=== PATIENT | female | born 1970 | race Caucasian/White ===

== ENCOUNTER 2024-12-21 10:49 | Outpatient (AMB) | payer MEDICARE, SELFPAY ==
--- NOTE | 2024-12-21 10:51 | MHC.OFFVIS ---
Vital Signs 12/21/24 10:52 Height 5 ft 2 in Weight 113 lb BMI 20.7 BP 118/68 Blood Pressure Location Lt brachial Position Sitting Respiration 16 Pulse 69 Pulse Source Pulse Oximeter Pulse Oximetry (%) 98 Oxygen Delivery Method Room Air Intake Visit Reasons: Left Sided Pain and Weakness Preliminary School Psychologist Required: No Allergies No Known Allergies Allergy (Verified 12/21/24 10:56) Medication List - Last Reconciled 12/21/24 by Donna Cherry LPN gabapentin 100 mg PO TID immun glob G(IgG)-pro-IgA 0-50 10 gram/50 mL (20 %) (Hizentra) 14,000 mg subcut QWEEK propranolol 20 mg PO BID HPI HPI Left Sided Pain and Weakness: Details: History of Present Illness The patient is a 54-year-old female presenting with left cervical radiculopathy and migraine management. She reports left-sided neck pain radiating to the anterior chest, axilla, and down the arm, associated with pins and needles and numbness in the left arm. The pain is described as aching, stabbing, and throbbing, with an intensity of 6 to 7 out of 10, exacerbated by movement and using her neck. The patient experiences daily migraines with aura, rated at an intensity of 8 out of 10, and is on gabapentin as needed and propranolol 20 mg twice daily for prophylaxis. Her medical history includes common variable immunodeficiency, POTS, and joint hypermobility. She reports bluish discoloration of her fingers and toes, consistent with Raynaud's phenomenon, and low pulse oximeter readings at night. She has been on Hizentra for her immunodeficiency and reports no association with her neuropathy. Pain Description - Onset: Approximately five years ago, occurring suddenly overnight. - Quality: Aching, stabbing, throbbing. - Location: Left-sided neck, anterior chest, axilla, radiating down the arm. - Radiation: Down the left arm. - Intensity: 6 to 7 out of 10. - Exacerbating factors: Movement, using the neck. - Relieving factors: Rest, not moving. - Interference: Sleep, daily activities. Physical Exam - Extremities: Fingertips cold to touch, bluish discoloration noted at night. Pain Management - Affect: Pain impacts sleep and daily activities. - Analgesia: Gabapentin as needed, propranolol 20 mg twice daily for migraine prophylaxis. - Adverse Effects: Previous allergic reaction to hydrocodone. - Activities of Daily Living: Pain interferes with sleep and daily activities. - Aberrant Drug Related Behaviors: None reported. 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 Inguinal hernia Hyperpigmentation Herpes Fibroids, subserous Femoral hernia of left side Fatigue Exertional dyspnea CVID (common variable immunodeficiency) Circulation problem Atypical chest pain Hypertriglyceridemia Abdominal pain in female Physical Exam Vital Signs: Last Vital Signs Pulse 69 12/21/24 10:52 Resp 16 12/21/24 10:52 BP 118/68 12/21/24 10:52 Pulse Ox 98 12/21/24 10:52 Oxygen Delivery Method Room Air 12/21/24 10:52 BMI result Body Mass Index 20.7 Assessment & Plan Assessment & Plan (1) Cervical spondylosis: Code(s): M47.812 - Spondylosis without myelopathy or radiculopathy, cervical region Category: Medical (2) POTS (postural orthostatic tachycardia syndrome): Code(s): G90.A - Postural orthostatic tachycardia syndrome [POTS] Category: Medical (3) Raynauds phenomenon: Code(s): I73.00 - Raynaud's syndrome without gangrene Category: Medical Plan Plan Patient was informed and verbally consented to the use of an ambient scribe for clinic note documentation during this visit. 1. Left Cervical Radiculopathy - Follow-up: Physical therapy referral for cervical radicular symptoms. 2. Migraine With Aura - Current Treatment: Gabapentin as needed, propranolol 20 mg twice daily for prophylaxis. 3. Raynaud's Phenomenon - Observation: Bluish discoloration of fingers and toes, low pulse oximeter readings at night. - Plan: Proceed with a L stellate ganglion block to manage sympathetic-mediated symptoms. R side 2 weeks later. 4. Postural Orthostatic Tachycardia Syndrome (Pots) - Management: Compression stockings, consideration of autonomic dysfunction management. SGB may help. 5. Joint Hypermobility - Observation: No specific management discussed during the visit. 6. Common Variable Immunodeficiency - Current Treatment: Hizentra for immunodeficiency management. Discussion Notes I discussed with the patient the potential benefits and risks of a stellate ganglion block for managing her sympathetic-mediated symptoms, including possible transient breathing difficulties due to local anesthetic spread. We also talked about the use of compression stockings for POTS and the importance of physical therapy for her cervical radiculopathy. Patient Instructions - Follow up with physical therapy as prescribed. - Wear compression stockings as advised for POTS management. - Await scheduling for the stellate ganglion block procedure. - Monitor for any new or worsening symptoms and report them promptly. Orders: Orders PT Evaluation and Treatment 12/21/24 M47.812 - Spondylosis without myelopathy or radiculopathy, cervical region Coding Level of Care Code New Pt Level 4 (07521) Diagnoses Cervical spondylosis M47.812 POTS (postural orthostatic tachycardia syndrome) G90.A Raynauds phenomenon I73.00
[2024-12-21 10:52] VITALS: BP 118/68; PULSE 69; RESP 16; O2SAT 98; BMI 20.7
--- OUTSIDE RECORDS SUMMARY | 2024-12-21 13:03 | XMS_ITS | Clinical Summary ---
Author Organization [facility] Address [address] [place], [place] [address] Phone Care Team Providers Care Plant Scientist Name Role Phone Мария Schmidt MD Primary Care Provider Vicky Sanon MD Unavailable [phone] Allergies Active Allergy Reactions Criticality Noted Date Comments Bee Venom Protein (Honey Bee) Unknown 10/13/2013 Bee Venom Protein (Honey Bee) High 05/25/2024 Other Flushing,Hives,Itchi n g,Palpitations Low 05/25/2024 Other Reaction(s): Skin lesion patient reports on intake health history form that MOST FOODS, ALL ALCOHOL and DIRECT SUN will lead to hives, flushing, rapid HR, itchy mouth and skin lesions Quinidine Hives 06/15/2020 Shellfish Containing Products 05/25/2024 Medications propranoloL (INDERAL) 20 MG immediate release tablet TAKE 1/2 TABLET BY MOUTH THREE TIMES DAILY FOR ANXIETY 03/25/2024 Active immun glob G,IgG,/pro/IgA 0-50 (HIZENTRA SUBQ) Inject under the skin every other week. Active Social History Tobacco Use Types Packs/Day Years Used Date Smoking Tobacco: Never Smokeless Tobacco: Never Alcohol Use Standard Drinks/Week Comments Not Currently 0 (1 standard drink = 0.6 oz pur e alcohol) Education Answer Date Recorded Are you interested in more education? Not on pooja e 05/25/2024 Are you concerned about learning? Not on file 05/25/2024 No 05/25/2024 No 05/25/2024 Digital Access Answer Date Recorded No 05/25/2024 No 05/25/2024 Reliable internet access at home? Not on file 05/25/2024 Device with a working camera? Not on file Comments Unknown Sex and Gender Information Value Date Recorded Sex Assigned at Not on file Legal Sex Female 10:27 AM EDT Gender Identity Not on file Sexual Orientation Not on file Last Filed Vital Signs Vital Sign Reading Time Taken Comments Blood Pressure 142/82 05/25/2024 1:35 PM EDT Pulse 74 05/22/2021 1:32 PM EST Temperature 37.2 C (98.9 F) 06/30/2021 11:53 AM EDT Respiratory Rate 16 06/30/2021 11:53 AM EDT Oxygen Saturation - - Inhaled Oxygen Concentration - - Weight 48.1 kg (106 lb) 05/25/2024 1:35 PM EDT Height 157.5 cm (5' 2 ) 05/25/2024 1:35 PM EDT Body Mass Index 19.39 05/25/2024 1:35 PM EDT Plan of Treatment Health Maintenance Due Date Last Done Comments Adult Td,Tdap Booster 1972 LIPID PANEL 1972 DEPRESSION SCREENING 1984 HEPATITIS C SCREENING 1990 HIV ONE-TIME SCREENING (18-6 5 YEARS) 1990 PAP SMEAR 1993 COLOGUARD 2017 COLONOSCOPY 2017 COLORECTAL CANCER SCREENING 2017 FIT TEST 2017 FOBT 2017 SIGMOIDOSCOPY 2017 VIRTUAL COLONOSCOPY 2017 MAMMOGRAM 10/30/2018 10/30/2016 PNEUMOCOCCAL VACCINES (50+ y ears) (1 of 1 - PCV) 2022 ZOSTER VACCINES (1 of 2) 2022 INFLUENZA VACCINE (#1) 2024 COVID-19 VACCINE (1 - 2023-2 5 season) 2024 SMOKING STATUS SCREENING (On ce After 26 Yrs) Completed 05/25/2024 HEPATITIS A VACCINES Aged Out No long er eligible based on patient's age to complete this topic HIB VACCINES Aged Out No longer eligi ble based on patient's age to complete this topic MENINGOCOCCAL VACCINES (ACWY) Aged Out No longer eligible based on patient's age to complete this topic MENINGOCOCCAL VACCINES (B) Aged Out N o longer eligible based on patient's age to complete this topic Medical Devices Not on file Insurance [employer] O POS EPO Care Teams Plant Scientist Relationship Specialty Start Date End Date Мария Schmidt MD [address] [place] [address] PCP - General Family Medicine 04/22/24 Vicky Sanon MD [address] [place] [address] [email or web address] 04/22/24 Additional Source Comments The information contained in this document represents components of the legal health record. It is not the complete legal health record.[facility]
--- OUTSIDE RECORDS SUMMARY | 2024-12-21 13:03 | XMS_ITS | Clinical Summary ---
Author Organization [facility] Address [address] [place] [address] Care Team Providers Care Still Worker Helper Name Role Phone Unavailable Primary Care Provider Unavailabl e Social History Tobacco Use Types Packs/Day Years Used Date Smoking Tobacco: Never Assessed Comments Unknown Sex and Gender Information Value Date Recorded Sex Assigned at Not on file Legal Sex Female 18:09 EST Gender Identity Not on file Sexual Orientation Not on file Plan of Treatment Health Maintenance Due Date Last Done Comments Hepatitis C Screen 1972 Hepatitis B Vaccine (1 of 3 - 19+ 3-dose series) 07/24 COVID-19 Vaccine ( season) 2023
--- OUTSIDE RECORDS SUMMARY | 2024-12-21 13:03 | XMS_ITS | Encounter Summary ---
Author Organization [facility] Address [address] [place] [address] Care Team Providers Care Branch Specialist Name Role Phone Unavailable Primary Care Provider Unavailabl e Encounter Details Date Type Department Care Team (Late st Contact Info) Description 06/10/[address] [facility] Pathology & Laboratory Medicine - [facility] [address] [place] [address] Мария Schmidt [address] [place] [address] Encounter for other general examination Social History Tobacco Use Types Packs/Day Years Used Date Smoking Tobacco: Never Assessed Comments Unknown Sex and Gender Information Value Date Recorded Sex Assigned at Not on file Legal Sex Female 18:09 EST Gender Identity Not on file Sexual Orientation Not on file documented as of this encounter Plan of Treatment Not on file documented as of this encounter Procedures Procedure Name Priority Date/Time Associated Diagnosis Comments PAP TEST Today 06/06/2023 16:55 EDT HPV DNA DETECTION WITH GENOTYPING, PCR Today 06/06/2023 16:55 EDT documented in this encounter Results * HUMAN PAPILLOMAVIRUS (HPV) DETECTION-HIGH RISK TYPES (06/06/2023 16:55 EDT) HPV other High Risk types, PCR Negative Negative 06/14/2023 15:44 EDT [facility] Comment:No E6 or E7 mRNA is detected from HPV types 16,18,31,33,35,39,45,51,52,56,58,59,66, and 68 by project planner mediated amplification. Pap Test CERVIX UTERI STRUCTURE / Unknown 06/06/2023 16:55 EDT 06/13/2023 14:56 EDT Мария Schmidt PATHOLOGY ORDERABLES Final Resul t [facility] [address] [place], [place] [id number] * PAP TEST (06/06/2023 16:55 EDT) Specimens A. Cervix and/or Endocervix , ThinPrep Imaging System with Manual Evaluation 06/14/2023 15:44 EDT [facility] Specimen Adequacy Satisfactory for Evaluation - transformation zone component present 06/14/2023 15:44 EDT [facility] General Categorization Negative for intraepithelial lesion or malignancy 06/14/2023 15:44 EDT [facility] Descriptive Diagnosis Shift in teagan present suggestive of bacterial vaginosis. 06/14/2023 15:44 EDT [facility] Attestation . 06/14/2023 15:44 T [facility] at 1544 EDT Clinical History SEE BELOW 06/14/19 15:44 EDT [facility] HPV The result for the Human Papillomavirus (HPV) Detection-High Risk Types is Negative. No E6 or E7 mRNA is detected from HPV types 16,18,31,33,35,39 ,45,51,52,56,58,5 9,66, and 68 by project planner mediated amplification.Sheridan ting was performed on specimen [id number] and was resulted on 06/14/2023 1544 EDT by OTILIO, LAB INSTRUMENT RESULTS IN 06/14/2023 15:44 EDT [facility] Performing Lab [facility] 06/14/2023 15:44 EDT [facility] Scanned Images 06/14/2023 15:44 T [facility] Pap Test CERVIX UTERI STRUCTURE / Unknown 06/06/2023 16:55 EDT 06/11/2023 16:04 EDT Мария Schmidt PATHOLOGY ORDERABLES Final Resul t [facility] [address] [place] [phone] documented in this encounter Visit Diagnoses Diagnosis Encounter for other general examination documented in this encounter
--- OUTSIDE RECORDS SUMMARY | 2024-12-21 13:03 | XMS_ITS | Encounter Summary ---
Author Organization [facility] Address [address] [place] [address] Care Team Providers Care Journeyman Sheet Metal Worker Name Role Phone Unavailable Primary Care Provider Unavailabl e Encounter Details Date Type Department Care Team (Late st Contact Info) Description 02/05/2023 Lab Requisition [facility] Pathology & Laboratory Medicine - [facility] [address] [place] [address] Outr Resulting Lab, Provider Social History Tobacco Use Types Packs/Day Years [...] Procedure Name Priority Date/Time Associated Diagnosis Comments IGE Routine 02/05/2023 14:28 EST documented in this encounter Results * IGE (02/05/2023 14:28 EST) IgE 7 <158 IU/mL 02/08/2023 8:57 EST [facility] Blood VENOUS BLOOD / Unknown 02/05/2023 14:28 EST 02/06/2023 21:02 EST us Provider Outr Resulting Lab CHEMISTRY & BLOOD GA S ORDERABLES Final Result [facility] [address] [place] [address] documented in this encounter Visit Diagnoses Not on filedocumented in this encounter
--- OUTSIDE RECORDS SUMMARY | 2024-12-21 13:03 | XMS_ITS | Encounter Summary ---
Author Organization [facility] Address [address] [place] [address] Care Team Providers Care Electric Tripper Machine Operator Name Role Phone Unavailable Primary Care Provider Unavailabl e Encounter Details Date Type Department Care Team (Late st Contact Info) Description 06/15/2024 Lab Requisition [facility] Pathology & Laboratory Medicine - [facility] [address] [place] [address] Outr Resulting Lab, Provider Social History Tobacco [...] Priority Date/Time Associated Diagnosis Comments IGE Routine 06/15/2024 11:32 EDT documented in this encounter Results * IGE (06/15/2024 11:32 EDT) IgE 6 <158 IU/mL 06/17/2024 8:21 EDT [facility] Blood VENOUS BLOOD / Unknown 06/15/2024 11:32 EDT 06/15/2024 22:21 EDT us Provider Outr Resulting Lab CHEMISTRY & BLOOD GA S ORDERABLES Final Result [facility] [address] [place], [place] [phone] documented in this encounter Visit Diagnoses Not on filedocumented in this encounter
--- OUTSIDE RECORDS SUMMARY | 2024-12-21 13:03 | XMS_ITS | Encounter Summary ---
Author Organization [facility] Address [address] [place] [address] Care Team Providers Care Restaurant Hostess Name Role Phone Unavailable Primary Care Provider Unavailabl e Encounter Details Date Type Department Care Team (Late st Contact Info) Description 08/13/2024 Lab Requisition [facility] Pathology & Laboratory Medicine - [facility] [address] [place] [address] Outr Resulting Lab, Provider Social History Tobacco [...] Procedure Name Priority Date/Time Associated Diagnosis Comments ANCA, IFA Routine 08/13/2024 11:26 EDT documented in this encounter Results * ANCA, IFA (08/13/2024 11:26 EDT) Lab ANCA Interpretation Negative Negative 08/14/2024 12:12 EDT [facility] Comment: ANNAMARIE Positive, suggest follow-up ANNAMARIE testing if clinically indicated. Cannot rule out Atypical P-ANCA (A-ANCA). No titer performed, ANCA Screen is negative. For patients being investigated for possible Anti-GBM disease, Idiopathic Interstitial Pneumonia, and Connective Tissue Disease with concomitant Kidney Disease with Nephritic Sediment or Lupus Nephritis, both MPO and PR3 antibodies are recommended to be assessed even in the presence of a negative ANCA, IFA result. Results were obtained with the [employer] NOVA Lite ANCA kit by indirect immunofluorescence. Blood VENOUS BLOOD / Unknown 08/13/2024 11:26 EDT 08/13/2024 21:23 EDT us Provider Outr Resulting Lab IMMUNOLOGY AND SEROL OGY ORDERABLES Final Result [facility] [address] [place] [address] documented in this encounter Visit Diagnoses Not on filedocumented in this encounter
--- OUTSIDE RECORDS SUMMARY | 2024-12-21 13:03 | XMS_ITS | Clinical Summary ---
Author Organization [facility] Address [facility] [place] [address] Care Team Providers Care Rebeamer Name Role Phone Мария Schmidt MD Primary Care Provider [phone] Allergies Active Allergy Reactions Criticality Noted Date Comments Unclassified Drug High 05/16/2022 Honey bees Quinidine-Quinine Analogues (Cinchona Alkaloids) Hives 06/16/2020 Shellfish Containing Products Hives 2020 Medications lidocaine-pril ocaine (EMLA) Cream APPLY EXTERNALLY TO THE AFFECTED AREA EVERY 2 WEEKS PRIOR TO HIZENTRA INJECTIONS 2 Active propranoloL (Inderal) 10 mg Tablet TAKE 1 TO 2 TABLETS BY MOUTH TWICE DAILY NEEDED 2 Active immun glob G,IgG,-pro-IgA 0-50 (Hizentra) 10 gram/50 mL (20 %) Solution Inject 200 mg/kg/dose subcutaneously once a week. Take with the 4mg biweekly Active Immune Globulin, Human,, IGG, (Hizentra) 4 gram/20 mL (20 %) Solution Inject 200 mg/kg/dose subcutaneously once a week. Takes with 10g biweekly Active melatonin 3 mg Tablet Take 3 mg by mouth. Active loratadine (CLARITIN REDITABS) 10 mg Tablet, Rapid Dissolve Take 10 mg by mouth daily. Active famotidine (PEPCID) 10 mg Tablet Take 10 mg by mouth. Active ascorbic acid, Vitamin C, (Vitamin C) 500 mg Tablet Take 500 mg by mouth daily. Active cholecalcifero l (Vitamin D3) 1,000 unit Tablet Take 4,000 Units by mouth daily. Active EPINEPHrine 0.3 mg/0.3 mL Auto-Injector See Admin Instructions. 7 Active ketoconazole (Nizoral) 2 % Cream apply to affected area for 14 days 2 Active ubiquinone, Coenzyme Q10, (Coenzyme Q10) 50 mg Capsule Take 100 mg by mouth daily. Active acetaminophen (Tylenol) 500 mg capsule Take by mouth 2 times daily as needed. Active valACYclovir (Valtrex) 500 mg tablet Take 1 tablet by mouth 2 times daily. FOR 10 DAYS 14 tablet 2 3 Active Active Problems Problem Noted Date Diagnosed Date Median rhomboid glossitis 06/12/2022 Bilateral recurrent inguinal hernia without obstruction or gangrene 06/12/2022 CVID (common variable immunodeficiency) 06/13/19 23 Immunodeficiency 06/12/2022 Low urinary cortisol 06/12/2022 Hyperpigmentation 06/12/2022 Encounters Date Type Department Care Team Description 11/24/2024 Episode Changes [place] [address] Derek Thomas MD from Last 3 Months Immunizations Immunization Administration Dates Next Due Pneumococcal 23-Valent Polysaccharide (Pneumovax 23) 12/24/2016 Family History Medical History Relation Comments No Known Problems Father Autism Spectrum Disorder Half-Brother high fu nctioning No Known Problems Half-Sister Autoimmune Disorder Mother lots of AI i ssues on mom's side; uncle passed from lupus complications; no contact with mom so unknown specific hx Lung Cancer Paternal Uncle heavy smoker No Known Problems Sister Relation Status Comments Father Alive Half-Brother Alive Half-Sister Alive Mother Paternal Uncle Sister Alive Social History Tobacco Use Types Packs/Day Years Used Date Smoking Tobacco: Never Smokeless Tobacco: Never Comments No Sex and Gender Information Value Date Recorded Sex Assigned at Female 05/22/2022 7:43 AM EST Legal Sex Female 1:19 PM EDT Gender Identity Female 05/22/2022 7:43 AM EST Sexual Orientation Straight 05/22/2022 7: 43 AM EST Last Filed Vital Signs Vital Sign Reading Time Taken Comments Blood Pressure 118/80 12/13/2023 10:59 AM EDT 112/72 on right arm Pulse 69 12/13/2023 10:59 AM EDT Temperature 37 C (98.6 F) 05/22/2022 11:03 AM EST Respiratory Rate - - Oxygen Saturation 99% 12/13/2023 10: 59 AM EDT Inhaled Oxygen Concentration - - Weight 47.5 kg (104 lb 12.8 oz) 12/13/2023 10:59 AM EDT Height 159 cm (5' 2.6 ) 12/13/2023 10:5 9 AM EDT Body Mass Index 18.8 12/13/2023 10:59 AM EDT Plan of Treatment Health Maintenance Due Date Last Done Comments CT Colonography 1972 Colonoscopy 1972 Colorectal Cancer Screening 1972 FIT DNA 1972 FIT 1972 Sigmoidoscopy (10 year) with FIT yearly 1972 Sigmoidoscopy 1972 Hepatitis C Screening 1990 Hepatitis B vaccine (0-59 yr s) and Risk (1) 07/25/1991 Tetanus/Diphtheria/Pertussis Vaccines (1 - Tdap) 07/25/1991 Zoster vaccine (1 of 2) 07/25/1991 Breast Cancer Share Decision Needed 2012 Pneumoccocal Vaccine: 50+ (2 of 2 - PCV) 12/24/2017 12/24/2016 HPV test 11/12/2022 11/12/2017 PAP Smear 11/12/2022 11/12/2017 Covid-19 Vaccine (1 - season) 2024 Influenza (Flu) vaccine (1 o f 1 - Influenza standard series) 11/16/2024 Breast Cancer screening 02/03/2026 02/04/2024, 06/14 HIV screen Completed 07/22/2016 Procedures Procedure Name Priority Date/Time Associated Diagnosis Comments MAMMO SCREENING CAD AND CARLOS BILATERAL Routine 02/04/2024 CYTOPATHOLOGY GYNECOLOGICAL Routine 11/12/2017 HIV SCREEN, 4TH GENERATION PERFORMABLE Routine 07/22/2016 from Last 3 Months or Most Recently Relevant to Health Maintenance Results * Mammo Screening Cad and Carlos Bilateral (02/04/2024) Anatomical Region Laterality Modality Breast Bilateral Mammography 02/04/2024 Narrative 02/04/2024 3:43 PM EST Ord Phys: Мария Schmidt NO KNOWN FAMILY HISTORY OF CANCER. BENIGN EXCISIONAL BIOPSY OF THE LEFT BREAST, 2008. TOOK HORMONAL CONTRACEPTIVES FOR 20 YEARS BEGINNING AT AGE 17. PATIENT'S SMOKING HISTORY IS UNKNOWN. PATIENT'S BMI IS 19.2. Last mammogram was performed 1 year and 8 months ago. Reason for exam: screening, asymptomatic screening mammo;Z12.31 Encounter for screening mammogram for malignant ne Patient reports left breast pain x 2 years but is getting worse. Area of pain marked on image. MA Mammogram Digital Screening: February 04, 2024 - Exam #: [id number] Bilateral CC and MLO view(s) were taken. Technologist: GISELA Rosas RT (R) (M) (BD) (ARRT) Prior study comparison: January 10, 2023, MA mammogram digital diagnostic left performed at [facility]. June 14, 2022, bilateral MA mammogram digital screening performed at [facility]. There are scattered fibroglandular densities. Bilateral mammography with CAD and digital breast tomosynthesis was performed. No dominant mass, architectural distortion or suspicious microcalcifications are seen. No focal lesion at the site of the pain upper outer aspect of the left breast. Ultrasound is recommended for further evaluation of this region. ASSESSMENT: Incomplete: need additional imaging evaluation - Left Ultrasound of the left breast. Electronically Signed By: Yohan Hernández MD *#* *#* Read by: Yohan Hernández M.D. Procedure Note Yohan Hernández MD - 02/04/2024 Ord Phys: Мраия Schmidt NO KNOWN FAMILY HISTORY OF CANCER. BENIGN EXCISIONAL BIOPSY OF THE LEFT BREAST, 2008. TOOK HORMONAL CONTRACEPTIVES FOR 20 YEARS BEGINNING AT AGE 17. PATIENT'S SMOKING HISTORY IS UNKNOWN. PATIENT'S BMI IS 19.2. Last mammogram was performed 1 year and 8 months ago. Reason for exam: screening, asymptomatic screening mammo;Z12.31 Encounter for screening mammogram for malignant ne Patient reports left breast pain x 2 years but is getting worse. Area of pain marked on image. MA Mammogram Digital Screening: February 04, 2024 - Exam #: [id number] Bilateral CC and MLO view(s) were taken. Technologist: GISELA Rosas RT (R) (M) (BD) (ARRT) Prior study comparison: January 10, 2023, MA mammogram digital diagnostic left performed at [facility]. June 14, 2022, bilateral MA mammogram digital screening performed at [facility]. There are scattered fibroglandular densities. Bilateral mammography with CAD and digital breast tomosynthesis was performed. No dominant mass, architectural distortion or suspicious microcalcifications are seen. No focal lesion at the site of the pain upper outer aspect of the left breast. Ultrasound is recommended for further evaluation of this region. ASSESSMENT: Incomplete: need additional imaging evaluation - Left Ultrasound of the left breast. Electronically Signed By: Yohan Hernández MD *#* *#* Read by: Yohan Hernández M.D. Мария Schmidt MD IMG MAMMO ORDERABLES Final Re sult * Cytopathology Gynecological (11/12/2017) External PAP Smear NEGATIVE Comment:PLEASE SEE CARE EVER YWHERE HPV Interpretation NEGATIVE AP Specimen 11/12/2017 Historical Provider PATHOLOGY/CYTOLOGY ORDERA BLES Final Result * HIV Screen, 4th Generation ([facility]/CGP/APD/NLH) (07/22/2016) HIV Ab/Ag Screen NON-REACTI VE Comment:PLEASE SEE CARE EVER YWHERE Blood 07/22/2016 Historical Provider CHEMISTRY ORDERABLES Bella l Result from Last 3 Months or Most Recently Relevant to Health Maintenance Insurance [employer] Care Teams Rebeamer Relationship Specialty Start Date End Date Мария Schmidt MD [address] [address] PCP - General Family Medicine 03/04/24
== END 2024-12-21 11:45 | disposition home or self-care (01) ==
LOC: HO.PMC 10:50
PROVIDERS: Visit Provider Internal Medicine
DX: M47.812 Spondylosis without myelopathy or radiculopathy, cervical region (principal); G90.A Postural orthostatic tachycardia syndrome [POTS]; I73.00 Raynaud's syndrome without gangrene
CPT/HCPCS: 99204

== ENCOUNTER → 2024-12-21 10:49 | Outpatient (BNVA) | payer MEDICARE, SELFPAY | PROVIDERS: Visit Provider Internal Medicine | DX: M47.812 Spondylosis without myelopathy or radiculopathy, cervical region (principal); G90.A Postural orthostatic tachycardia syndrome [POTS]; I73.00 Raynaud's syndrome without gangrene | CPT/HCPCS: 99202 ==

== ENCOUNTER 2025-02-18 06:32 | Outpatient (REF) | payer MEDICARE, SELFPAY ==
--- OUTSIDE RECORDS SUMMARY | 2025-02-18 06:35 | XMS_ITS | Encounter Summary ---
Author Organization [facility] Address [address] [place] [address] Care Team Providers Care Senior Supplier Quality Engineer Name Role Phone Unavailable Primary Care Provider Unavailabl e Encounter Details Date Type Department Care Team (Late st Contact Info) Description 08/13/2024 Lab Requisition [facility] Pathology & Laboratory Medicine - [facility] [address] [place] [address] Outr Resulting Lab, Provider Social History Tobacco [...] ANCA Interpretation Negative Negative 08/14/2024 12:12 EDT [facility] Comment: ANNAMARIE Positive, suggest follow-up [...] IFA result. Results were obtained with the [employer] NOVA Lite ANCA kit by indirect immunofluorescence. Blood VENOUS BLOOD / Unknown 08/13/2024 11:26 EDT 08/13/2024 21:23 EDT us Provider Outr Resulting Lab IMMUNOLOGY AND SEROL OGY ORDERABLES Final Result [facility] [address] [place] [address] documented in this encounter Visit Diagnoses Not on filedocumented in this encounter
--- OUTSIDE RECORDS SUMMARY | 2025-02-18 06:35 | XMS_ITS | Encounter Summary ---
Author Organization [facility] Address [address] [place] [address] Care Team Providers Care Taxi Cab Driver Name Role Phone Unavailable Primary Care Provider Unavailabl e Encounter Details Date Type Department Care Team (Late st Contact Info) Description 06/15/2024 Lab Requisition [facility] Pathology & Laboratory Medicine - [facility] [address] [place] [address] Outr Resulting Lab, Provider Social History Tobacco [...] IgE 6 <158 IU/mL 06/17/2024 8:21 EDT [facility] Blood VENOUS BLOOD / Unknown 06/15/2024 11:32 EDT 06/15/2024 22:21 EDT us Provider Outr Resulting Lab CHEMISTRY & BLOOD GA S ORDERABLES Final Result [facility] [address] [place], [place] [id number] documented in this encounter Visit Diagnoses Not on filedocumented in this encounter
--- OUTSIDE RECORDS SUMMARY | 2025-02-18 06:35 | XMS_ITS | Encounter Summary ---
Author Organization [facility] Address [address] [place] [address] Care Team Providers Care Truck Driver Rubbish Collector Name Role Phone Unavailable Primary Care Provider Unavailabl e Encounter Details Date Type Department Care Team (Late st Contact Info) Description 02/05/2023 Lab Requisition [facility] Pathology & Laboratory Medicine - [facility] [address] [place] [address] Outr Resulting Lab, Provider Social History Tobacco [...] IgE 7 <158 IU/mL 02/08/2023 8:57 EST [facility] Blood VENOUS BLOOD / Unknown 02/05/2023 14:28 EST 02/06/2023 21:02 EST us Provider Outr Resulting Lab CHEMISTRY & BLOOD GA S ORDERABLES Final Result [facility] [address] [place] [address] documented in this encounter Visit Diagnoses Not on filedocumented in this encounter
--- OUTSIDE RECORDS SUMMARY | 2025-02-18 06:35 | XMS_ITS | Clinical Summary ---
Author Organization [facility] Address [address] [place] [address] Care Team Providers Care Network Planner Name Role Phone Unavailable Primary Care Provider [...] 3-dose series) 07/24 COVID-19 Vaccine ( season) 2024
--- OUTSIDE RECORDS SUMMARY | 2025-02-18 06:35 | XMS_ITS | Clinical Summary ---
Author Organization [facility] Address [facility] [place] [address] Care Team Providers Care Dispatcher Chief Coal Slurry Name Role Phone Мария Schmidt MD Primary Care Provider [phone] Allergies Active Allergy Reactions Criticality Noted Date [...] Encounters Date Type Department Care Team Description 02/04/2025 Interpretation Only [address] [address] Hosea Boyd MD Abdominal distension (gaseous); Left lower quadrant pain 01/29/2025 Interpretation Only [address] [address] Мария Schmidt MD Cervicalgia 12/29/2024 Transcribe Orders eD Incoming Referrals [phone] Мария Schmidt MD Idiopathic sleep related nonobstructive alveolar hypoventilation 11/24/2024 Episode [place] [id number] Derek Thomas MD from Last 3 Months [...] Done Comments CT Colonography 1972 Colonoscopy 1972 FIT 1972 Sigmoidoscopy (10 year) with FIT yearly 1972 Sigmoidoscopy 1972 Hepatitis C Screening 1990 Hepatitis B vaccine (0-59 yr s) and Risk (1) 07/25/1991 Tetanus/Diphtheria/Pertussis Vaccines (1 - Tdap) 07/25/1991 Zoster vaccine (1 of 2) 07/25/1991 Breast Cancer Share Decision Needed 2012 Pneumoccocal Vaccine: 50+ (2 of 2 - PCV) 12/24/2017 12/24/2016 RSV Vaccine (1 - Risk 50-74 years 1-dose series) 2022 HPV test 11/12/2022 11/12/2017 PAP Smear 11/12/2022 11/12/2017 Covid-19 Vaccine (1 - season) 2024 Influenza (Flu) vaccine (1 o f 1 - Influenza standard series) 11/16/2024 Breast Cancer screening 02/03/2026 02/04/2024, 06/14 Colorectal Cancer Screening 01/22/2027 FIT DNA 01/22/2027 01/23/2024 HIV screen Completed 07/22/2016 Procedures Procedure Name Priority Date/Time Associated Diagnosis Comments US PELVIS COMPLETE Routine 02/04/2025 2: 30 PM EST Abdominal distension (gaseous) Left lower quadrant pain MRI CERVICAL SPINE WO CONTRAST Routine 01/29/2025 1:27 PM EST Cervicalgia MAMMO SCREENING CAD AND CARLOS BILATERAL Routine 02/04/2024 CYTOPATHOLOGY GYNECOLOGICAL Routine 11/12/2017 HIV SCREEN, 4TH GENERATION PERFORMABLE Routine 07/22/2016 from Last 3 Months or Most Recently Relevant to Health Maintenance Results * US Pelvis Complete (02/04/2025 2:30 PM EST) PT CLASS O RAD ADMITDTTM [id number] RAD PT RAD MD INFO [id number]^BOYD ^CHRISTOPHER RAD EXAM DESC UPEL^US Pelvis Non-OB Complete^RIS RAD WORKSTATION ID BVT RAD Anatomical Region Laterality Modality Pelvis Ultrasound 02/04/2025 2:30 PM EST Impressions 02/04/2025 3:36 PM EST 1. Fibroid uterus. 2. Small left inguinal hernia. Thank you for letting us participate in the care of this patient. If you are a health care provider and have any questions regarding this report, please contact the number above. For patients who have questions, please contact the health acute care registered nurse that requested your imaging first. Yohan Hernández, Staff Physician Electronically Signed Final Report 02/04/2025 03:36 pm Narrative 02/04/2025 3:36 PM EST Gynecological Report (Signed Final 02/04/2025 03:36 pm) PATIENT INFO: ID #: [id number] : [birth year] (54 yrs)(F) Name: DEVORAH WAYNE Visit Date: 02/04/2025 02:30 pm IDALMIS PERFORMED BY: Attending: Yohan Hernández MD Performed By: Lamar Cruz Referred By: HOSEA BOYD Location: [facility] SERVICE(S) PROVIDED: UPEL - Pelvis Complete - [id number] INDICATIONS: increased abdominal bloating, LLQ pain and nausea;R14.0 Abdominal distension (gaseous) -------- HISTORY: -------- Age: 54 ------- UTERUS: ------- Uterus: Visualized Position: Anteverted Size (cm) L: 8.9 H: 7.7 Description: Heterogeneous myometrium, 2 discrete fibroids measured. ------- MYOMAS: ------- Site L(cm) W(cm) D(cm) Location 3.0 2.0 2.6 Mid 2.6 2.3 2.9 Mid anterior Blood Flow RI PI Comments ENDOMETRIUM: Endometrium: Normal appearance Thickness(mm): 11.0 RIGHT OVARY: Status: Visualized Size (cm) L: 3.4 W: 2.9 H: 1.7 Vol (ml): 8.8 Morphology: Normal appearance LEFT OVARY: Status: Not Visualized --------- COMMENTS: --------- Left inguinal hernia measuring 6 mm. Procedure Note Yohan Hernández MD - 02/04/2025 Gynecological Report (Signed Final 02/04/2025 03:36 pm) PATIENT INFO: ID #: [id number] : [birth year] (54 yrs)(F) Name: DEVORAH WAYNE Visit Date: 02/04/2025 02:30 pm IDALMIS PERFORMED BY: Attending: Yohan Hernández MD Performed By: Lamar Cruz Referred By: HOSEA BOYD Location: [facility] SERVICE(S) PROVIDED: UPEL - Pelvis Complete - [id number] INDICATIONS: increased abdominal bloating, LLQ pain and nausea;R14.0 Abdominal distension (gaseous) -------- HISTORY: -------- Age: 54 ------- UTERUS: ------- Uterus: Visualized Position: Anteverted Size (cm) L: 8.9 H: 7.7 Description: Heterogeneous myometrium, 2 discrete fibroids measured. ------- MYOMAS: ------- Site L(cm) W(cm) D(cm) Location 3.0 2.0 2.6 Mid 2.6 2.3 2.9 Mid anterior Blood Flow RI PI Comments ENDOMETRIUM: Endometrium: Normal appearance Thickness(mm): 11.0 RIGHT OVARY: Status: Visualized Size (cm) L: 3.4 W: 2.9 H: 1.7 Vol (ml): 8.8 Morphology: Normal appearance LEFT OVARY: Status: Not Visualized --------- COMMENTS: --------- Left inguinal hernia measuring 6 mm. IMPRESSION 1. Fibroid uterus. 2. Small left inguinal hernia. Electronically signed by: Yohan Hernández, [facility] ([phone]), at 02/04/2025 3:30 PM Thank you for letting us participate in the care of this patient. If you are a health care provider and have any questions regarding this report, please contact the number above. For patients who have questions, please contact the health acute care registered nurse that requested your imaging first. Yohan Hernández, Staff Physician Electronically Signed Final Report 02/04/2025 03:36 pm us Hosea Boyd MD [facility] PELVIC ORDERABLES Final Result * MRI Cervical Spine wo Contrast (Standard) (01/29/2025 1:27 PM EST) PT CLASS O RAD ADMITDTTM [id number] [facility] PT MRN --15 [facility] INFO [id number]^Arthurm an^Мария [facility] EXAM DESC [id number]^MRI Spine Cervical w/o Contrast^RIS [facility] WORKSTATION ID [id number] [facility] Anatomical Region Laterality Modality C-spine Magnetic Resonan ce 01/29/2025 1:27 PM EST Impressions 02/01/2025 1:05 PM EST Degenerative disc changes and facet arthropathy of the cervical spine most marked at C4-5 and C5-6. There is moderate right neural foramen narrowing at C5-6. Thank you for letting us participate in the care of this patient. If you are a health care provider and have any questions regarding this report, please contact the number below. For patients who have questions please contact the health acute care registered nurse that requested your imaging first. Electronically signed by: Andrey Tucker MD, [facility] ([phone]), at 02/01/2025 1:05 PM Narrative 02/01/2025 1:05 PM EST EXAMINATION: MRI Spine Cervical w/o Contrast CLINICAL HISTORY: worsening chronic left sided neck pain with radiation down the left arm;M54.2 Cervicalgia TECHNIQUE: MRI of the cervical spine performed without intravenous contrast administration. COMPARISON: None FINDINGS: There is mild straightening of cervical lordosis and slight retrolisthesis of C5 with respect to C6. There is mild loss of disc space height at C4-5 and C5-6. Marrow signal is normal. The cervical spinal cord is of normal contour and signal characteristics. At C2-3 there is no disc herniation or evidence of nerve root impingement. At C3-4 there is mild right and moderate left hypertrophic facet arthropathy producing little narrowing of the spinal canal or neural foramina. At C4-5 there is posterior ridging by disc and uncovertebral osteophyte. The disc produces partial effacement of the ventral subarachnoid space and slightly flattens the ventral aspect of the spinal cord the dorsal subarachnoid spaces are widely patent. There is mild bilateral facet arthropathy and mild left neural foramen narrowing. At C5-6 there is posterior ridging by a disc and uncovertebral osteophyte greater on the right. This combines with mild bilateral facet arthropathy to produce moderate right and mild left neural foramen narrowing. There is partial effacement of ventral subarachnoid space but no compression of the spinal cord. At C 67 there is minor disc osteophyte and bilateral neural foramen narrowing. At C7-T1 there is no disc herniation or evidence of nerve root impingement. Procedure Note Andrey Tucker MD - 02/01/2025 EXAMINATION: MRI Spine Cervical w/o Contrast CLINICAL HISTORY: worsening chronic left sided neck pain with radiationdown the left arm;M54.2 Cervicalgia TECHNIQUE: MRI of the cervical spine performed without intravenous contrastadministration. COMPARISON: None FINDINGS: There is mild straightening of cervical lordosis and slight retrolisthesisof C5 with respect to C6. There is mild loss of disc space height at C4-5 andC5-6. Marrow signal is normal. The cervical spinal cord is of normal contourand signal characteristics. At C2-3 there is no disc herniation or evidence of nerve rootimpingement. At C3-4 there is mild right and moderate left hypertrophic facetarthropathy producing little narrowing of the spinal canal or neural foramina. At C4-5 there is posterior ridging by disc and uncovertebral osteophyte.The disc produces partial effacement of the ventral subarachnoid space andslightly flattens the ventral aspect of the spinal cord the dorsal subarachnoidspaces are widely patent. There is mild bilateral facet arthropathy and mildleft neural foramen narrowing. At C5-6 there is posterior ridging by a disc and uncovertebralosteophyte greater on the right. This combines with mild bilateral facet arthropathyto produce moderate right and mild left neural foramen narrowing. There ispartial effacement of ventral subarachnoid space but no compression of the spinalcord. At C 67 there is minor disc osteophyte and bilateral neural foramennarrowing. At C7-T1 there is no disc herniation or evidence of nerve rootimpingement. IMPRESSION Degenerative disc changes and facet arthropathy of the cervical spinemost marked at C4-5 and C5-6. There is moderate right neural foramen narrowingat C5-6. Thank you for letting us participate in the care of this patient. If youare a health care provider and have any questions regarding this report,please contact the number below. For patients who have questions please contactthe health acute care registered nurse that requested your imaging first. Electronically signed by: Andrey Tucker MD, [facility]([phone]), at 02/01/2025 1:05 PM us Мария Schmidt MD IM MRI ORDERABLES Final Resu lt * Mammo Screening Cad and Carlos Bilateral [...] Screening: February 04, 2024 - Exam #: [id number] Bilateral CC and MLO view(s) were taken. Technologist: GISELA Rosas RT (R) (M) (BD) (ARRT) Prior study comparison: January 10, 2023, MA mammogram digital diagnostic left performed at [facility]. June 14, 2022, bilateral MA mammogram digital screening performed at [facility]. There are scattered fibroglandular densities. Bilateral [...] Yohan Hernández MD - 02/04/2024 Ord Phys: Мария Schmidt NO KNOWN FAMILY [...] Screening: February 04, 2024 - Exam #: [id number] Bilateral CC and MLO view(s) were taken. Technologist: GISELA Rosas RT (R) (M) (BD) (ARRT) Prior study comparison: January 10, 2023, MA mammogram digital diagnostic left performed at [facility]. June 14, 2022, bilateral MA mammogram digital screening performed at [facility]. There are scattered fibroglandular densities. Bilateral [...] Final Result * HIV Screen, 4th Generation ([facility]/CGP/APD/NL) (07/22/2016) HIV Ab/Ag Screen NON-REACTI VE Comment:PLEASE SEE CARE EVER YWHERE Blood 07/22/2016 Historical Provider CHEMISTRY ORDERABLES Bella l Result from Last 3 Months or Most Recently Relevant to Health Maintenance Insurance [employer] Care Teams Dispatcher Chief Coal Slurry Relationship Specialty Start Date End Date Мария Schmidt MD [address] [facility] [address] [place] [address] PCP - General Family Medicine 03/04/24
--- OUTSIDE RECORDS SUMMARY | 2025-02-18 06:35 | XMS_ITS | Clinical Summary ---
Author Organization [facility] Address [address] [place], [place] [address] Phone Care Team Providers Care Global Implementation Manager Name Role Phone Мария Schmidt MD Primary Care Provider Vicky Sanon MD Unavailable [phone] Allergies Active Allergy Reactions Criticality Noted Date [...] 2022 INFLUENZA VACCINE (#1) 2024 COVID-19 VACCINE ( - 2024-2 6 season) 2024 RSV VACCINE (1 - 1-dose 75+ series) 07/25/2047 SMOKING STATUS SCREENING (On ce After 26 [...] Insurance [employer] O POS EPO Care Teams Global Implementation Manager Relationship Specialty Start Date End Date Мария Schmidt MD [address] [place] [address] [facility] [place] [address] PCP - General Family Medicine 04/22/24 Vicky Sanon MD [address] [place] [address] [email or web address] 04/22/24 Additional Source Comments The information contained in this document represents components of the legal health record. It is not the complete legal health record.[facility]
--- OUTSIDE RECORDS SUMMARY | 2025-02-18 06:35 | XMS_ITS | Encounter Summary ---
Author Organization [facility] Address [address] [place] [address] Care Team Providers Care Reference Assistant Name Role Phone Unavailable Primary Care Provider Unavailabl e Encounter Details Date Type Department Care Team (Late st Contact Info) Description 06/10/2023 Lab Requisition [facility] Pathology & Laboratory Medicine - [facility] [address] [place] [address] Мария Schmidt [address] [place] [address] Encounter for other general examination [...] types, PCR Negative Negative 06/14/2023 15:44 EDT [facility] Comment:No E6 or E7 mRNA is detected from HPV types 16,18,31,33,35,39,45,51,52,56,58,59,66, and 68 by professor of forestry mediated amplification. Pap Test CERVIX UTERI STRUCTURE / Unknown 06/06/2023 16:55 EDT 06/13/2023 14:56 EDT Мария Schmidt PATHOLOGY ORDERABLES Final Resul t [facility] [address] [place], [place] [id number] * PAP TEST (06/06/2023 16:55 EDT) Specimens A. Cervix and/or Endocervix , ThinPrep Imaging System with Manual Evaluation 06/14/2023 15:44 EDT [facility] Specimen Adequacy Satisfactory for Evaluation - transformation zone component present 06/14/2023 15:44 EDT [facility] General Categorization Negative for intraepithelial lesion or malignancy 06/14/2023 15:44 EDT [facility] Descriptive Diagnosis Shift in teagan present suggestive of bacterial vaginosis. 06/14/2023 15:44 EDT [facility] Attestation . 06/14/2023 15:44 T [facility] at 1544 EDT Clinical History SEE BELOW 06/14/19 15:44 EDT [facility] HPV The result for the Human Papillomavirus (HPV) Detection-High Risk Types is Negative. No E6 or E7 mRNA is detected from HPV types 16,18,31,33,35,39 ,45,51,52,56,58,5 9,66, and 68 by professor of forestry mediated amplification.Sheridan ting was performed on specimen [id number] and was resulted on 06/14/2023 1544 EDT by OTILIO, LAB INSTRUMENT RESULTS IN 06/14/2023 15:44 EDT [facility] Performing Lab [facility] 06/14/2023 15:44 EDT [facility] Scanned Images 06/14/2023 15:44 T [facility] Pap Test CERVIX UTERI STRUCTURE / Unknown 06/06/2023 16:55 EDT 06/11/2023 16:04 EDT Мария Schmidt PATHOLOGY ORDERABLES Final Resul t [facility] [address] [place] [id number] documented in this encounter Visit Diagnoses Diagnosis Encounter for other general examination documented in this encounter
== END 2025-02-18 06:33 | disposition home or self-care (01) ==
LOC: CF 06:32
PROVIDERS: Visit Provider Internal Medicine
DX: I73.00 Raynaud's syndrome without gangrene (principal); G90.A Postural orthostatic tachycardia syndrome [POTS]
CPT/HCPCS: 64510; J2003; J2795

== ENCOUNTER 2025-02-18 10:56 | Outpatient (AMB) | payer MEDICARE, SELFPAY ==
[2025-02-18 11:09] VITALS: BP 119/74; PULSE 56; RESP 16; O2SAT 99
--- NOTE | 2025-02-18 11:09 | A.OFFVIS_ITS ---
Vital Signs 02/18/25 11:09 02/18/25 11:46 BP 119/74 152/86 H Blood Pressure Location Lt brachial Lt brachial Position Sitting Sitting Respiration 16 16 Pulse 56 65 Pulse Source Pulse Oximeter Pulse Oximeter Pulse Oximetry (%) 99 99 Oxygen Delivery Method Room Air Room Air Intake Visit Reasons: Left Stellate Ganglion Block Allergies No Known Allergies Allergy (Verified 02/18/25 11:09) Medication List - Last Reconciled 02/18/25 by Donna Cherry LPN gabapentin 100 mg PO TID immun glob G(IgG)-pro-IgA 0-50 10 gram/50 mL (20 %) (Hizentra) 14,000 mg subcut QWEEK propranolol 20 mg PO BID HPI HPI Left Stellate Ganglion Block: Details: Patient presents for scheduled procedure. Denies any recent cough, cold, infection, fever or other significant changes in medical history since last office visit. 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 Inguinal hernia Hyperpigmentation Herpes Fibroids, subserous Femoral hernia of left side Fatigue Exertional dyspnea CVID (common variable immunodeficiency) Circulation problem Atypical chest pain Hypertriglyceridemia Abdominal pain in female Physical Exam Vital Signs: Last Vital Signs Pulse 65 02/18/25 11:46 Resp 16 02/18/25 11:46 BP 152/86 H 02/18/25 11:46 Pulse Ox 99 02/18/25 11:46 Oxygen Delivery Method Room Air 02/18/25 11:46 Office Procedures Nerve Block Details: Ultrasound Guided Stellate Ganglion Block, Left After obtaining written consent, pre-procedure pulse and blood pressure were stable and available in the patient's chart for review. Skin temperature probes were attached to both upper extremities. The patient was placed in the supine position with a thoracolumbar roll. The patient was prepped and draped in a sterile manner. The neck anatomy was identified with the ultrasound machine. The carotid artery, trachea and longus colli muscle were identified. A 22G spinal needle was inserted and advanced in real time under ultrasound guidance to the body of the longus colli muscle. There was no evidence of paresthesia, heme, or CSF. An injection was performed with 8 ml of 0.5% ropivicaine. This was administered over a two to three minute period with frequent aspirations, all of which were negative. 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 There was no evidence of motor blockade. The patient tolerated the procedure we ll. Following the procedure the patient's vital signs were stable. The intravenous was removed. The patient was discharged home in good condition after being given discharge instructions. Time Out: Immediately prior to the procedure, the following was verbally confirmed that there is a signed consent form and that the correct patient, planned procedure, site and side are consistent with documentation and that necessary equipment and/or blood products are available prior to the start of the case. Complications: none EBL: <2 cc 29925 - Stellate Ganglion Procedure code (CPT) selection complete Assessment & Plan Assessment & Plan (1) Raynauds phenomenon: Code(s): I73.00 - Raynaud's syndrome without gangrene Category: Medical Plan Patient is status post left stellate ganglion block. Patient tolerated procedure well and was discharged home in stable condition with discharge instructions. All questions were answered. We will follow-up via telephone or in clinic to assess response to therapy. A follow-up appointment was made during today's visit. Orders: Orders FL guidance in treatment room 02/18/25 G90.A - Postural orthostatic tachycardia syndrome [POTS] Coding Level of Care Code Procedure Only Diagnoses Raynauds phenomenon I73.00 CPT Codes Nerve Block - Nerve Block 11: 81456 - Stellate Ganglion ([id number])
[2025-02-18 11:46] VITALS: BP 152/86; PULSE 65; RESP 16; O2SAT 99
== END 2025-02-18 12:09 | disposition home or self-care (01) ==
LOC: HO.PMCPRC 10:56
PROVIDERS: Visit Provider Internal Medicine
DX: I73.00 Raynaud's syndrome without gangrene (principal)
CPT/HCPCS: 64510; 76942

== ENCOUNTER 2025-03-04 06:23 | Outpatient (REF) | payer MEDICARE, SELFPAY ==
--- OUTSIDE RECORDS SUMMARY | 2025-03-04 06:26 | XMS_ITS | Encounter Summary ---
Author Organization [facility] Address [address] [place] [address] Care Team Providers Care Interactive Media Director Name Role Phone Unavailable Primary Care Provider Unavailabl e Encounter Details Date Type Department Care Team (Late st Contact Info) Description 02/05/2023 Lab Requisition [facility] Pathology & Laboratory Medicine - [facility] [address] [place] [address] Outr Resulting Lab, Provider Social History Tobacco [...] 7 <158 IU/mL 02/08/2023 8:57 EST [facility] Blood VENOUS BLOOD / Unknown 02/05/2023 14:28 EST 02/06/2023 21:02 EST us Provider Outr Resulting Lab CHEMISTRY & BLOOD GA S ORDERABLES Final Result [facility] [address] [place] [address] documented in this encounter Visit Diagnoses Not on filedocumented in this encounter
--- OUTSIDE RECORDS SUMMARY | 2025-03-04 06:26 | XMS_ITS | Clinical Summary ---
Author Organization [facility] Address [address] [place] [address] Care Team Providers Care Chronic Care Nurse Name Role Phone Unavailable Primary Care Provider [...]
--- OUTSIDE RECORDS SUMMARY | 2025-03-04 06:26 | XMS_ITS | Clinical Summary ---
Author Organization [facility] Address [address] [place], [place] [address] Phone Care Team Providers Care Hand Drawer In Helper Name Role Phone Мария Schmidt MD Primary Care Provider Vicky Sanon MD Unavailable [phone] Allergies Active Allergy Reactions Criticality Noted Date [...] Insurance [employer] O POS EPO Care Teams Hand Drawer In Helper Relationship Specialty Start Date End Date Мария Schmidt MD [address] [place] [address] [facility] [place] [address] PCP - General Family Medicine 04/22/24 Vicky Sanon MD [address] [place] [address] [email or web address] 04/22/24 Additional Source Comments The information contained in this document represents components of the legal health record. It is not the complete legal health record.[facility]
--- OUTSIDE RECORDS SUMMARY | 2025-03-04 06:26 | XMS_ITS | Clinical Summary ---
Author Organization [facility] Address [facility] [place] [address] Care Team Providers Care Strickler Attendant Name Role Phone Мария Schmidt MD Primary Care Provider [phone] Allergies Active Allergy Reactions Criticality Noted Date [...] Department Care Team Description 02/04/2025 Interpretation Only [address] [address] Hosea Boyd MD Abdominal distension (gaseous); Left lower quadrant pain 01/29/2025 Interpretation Only [address] [address] Мария Schmidt MD Cervicalgia 12/29/2024 Transcribe Orders eD Incoming Referrals [phone] Мария Schmidt MD Idiopathic sleep related nonobstructive alveolar hypoventilation from Last 3 Months Immunizations Immunization Administration [...] Smear 11/12/2022 11/12/2017 Covid-19 Vaccine (1 - 2024- season) 2024 Influenza (Flu) vaccine (1 o [...] PM EST) PT CLASS O RAD ADMITDTTM [id number] RAD PT RAD MD INFO [id number]^BOYD ^CHRISTOPHER RAD EXAM DESC UPEL^US Pelvis Non-OB [...] who have questions, please contact the health resident care spec that requested your imaging first. Yohan Hernández, Staff Physician Electronically Signed Final Report 02/04/2025 03:36 pm Narrative 02/04/2025 3:36 PM EST Gynecological Report (Signed Final 02/04/2025 03:36 pm) PATIENT INFO: ID #: [id number] : [birth year] (54 yrs)(F) Name: DEVORAH WAYNE Visit Date: 02/04/2025 02:30 pm IDALMIS PERFORMED BY: Attending: Yohan Hernández MD Performed By: Lamar Cruz Referred By: HOSEA BOYD Location: [facility] SERVICE(S) PROVIDED: UPEL - Pelvis Complete - [id number] INDICATIONS: increased abdominal bloating, LLQ pain and [...] Lamar Cruz Referred By: HOSEA BOYD Location: [facility] SERVICE(S) PROVIDED: UPEL - Pelvis Complete - [id number] INDICATIONS: increased abdominal bloating, LLQ pain and [...] who have questions, please contact the health resident care spec that requested your imaging first. Yohan Hernández, Staff Physician Electronically Signed Final Report 02/04/2025 03:36 pm us Hosea Boyd MD [facility] US PELVIC ORDERABLES Final Result * MRI Cervical Spine wo Contrast (Standard) (01/29/2025 1:27 PM EST) PT CLASS O [facility] ADMITDTTM [id number] [facility] PT [facility] INFO [id number]^Kaufm an^Мария [facility] EXAM DESC [id number]^MRI Spine Cervical w/o Contrast^RIS [facility] WORKSTATION ID [id number] [facility] Anatomical Region Laterality Modality C-spine Magnetic Resonan [...] who have questions please contact the health resident care spec that requested your imaging first. Narrative 02/01/2025 1:05 PM EST EXAMINATION: MRI [...] patients who have questions please contactthe health resident care spec that requested your imaging first. us Мария Schmidt MD [facility] MRI ORDERABLES Final Resu lt * Mammo [...] Screening: February 04, 2024 - Exam #: [id number] Bilateral CC and MLO view(s) were taken. Technologist: GISELA Rosas RT (R) (M) (BD) (ARRT) Prior study comparison: January 10, 2023, MA mammogram digital diagnostic left performed at [facility]. June 14, 2022, bilateral MA mammogram digital screening performed at [facility]. There are scattered fibroglandular densities. Bilateral mammography [...] Screening: February 04, 2024 - Exam #: [id number] Bilateral CC and MLO view(s) were taken. Technologist: GISELA Rosas RT (R) (M) (BD) (ARRT) Prior study comparison: January 10, 2023, MA mammogram digital diagnostic left performed at [facility]. June 14, 2022, bilateral MA mammogram digital screening performed at [facility]. There are scattered fibroglandular densities. Bilateral mammography [...] Final Result * HIV Screen, 4th Generation ([facility]/CGP/APD/NL) (07/22/2016) HIV Ab/Ag Screen NON-REACTI VE Comment:PLEASE SEE CARE EVER YWHERE Blood 07/22/2016 Historical Provider CHEMISTRY ORDERABLES Bella l Result from Last 3 Months or Most Recently Relevant to Health Maintenance Insurance [employer] Care Teams Strickler Attendant Relationship Specialty Start Date End Date Мария Schmidt MD [address] [address] PCP - General Family Medicine 03/04/24
--- OUTSIDE RECORDS SUMMARY | 2025-03-04 06:26 | XMS_ITS | Encounter Summary ---
Author Organization [facility] Address [address] [place] [address] Care Team Providers Care Front Facer Name Role Phone Unavailable Primary Care Provider Unavailabl e Encounter Details Date Type Department Care Team (Late st Contact Info) Description 06/10/2023 Lab Requisition [facility] Pathology & Laboratory Medicine - [facility] [address] [place] [address] Мария Schmidt [address] [place] [address] Encounter for other general examination [...] types, PCR Negative Negative 06/14/2023 15:44 EDT [facility] Comment:No E6 or E7 mRNA is detected from HPV types 16,18,31,33,35,39,45,51,52,56,58,59,66, and 68 by yard person mediated amplification. Pap Test CERVIX UTERI STRUCTURE / Unknown 06/06/2023 16:55 EDT 06/13/2023 14:56 EDT Маряи Schmidt PATHOLOGY ORDERABLES Final Resul t [facility] [address] [place], [place] [id number] * PAP TEST (06/06/2023 16:55 EDT) Specimens A. Cervix and/or Endocervix , ThinPrep Imaging System with Manual Evaluation 06/14/2023 15:44 EDT [facility] Specimen Adequacy Satisfactory for Evaluation - transformation zone component present 06/14/2023 15:44 EDT [facility] General Categorization Negative for intraepithelial lesion or malignancy 06/14/2023 15:44 EDT [facility] Descriptive Diagnosis Shift in teagan present suggestive of bacterial vaginosis. 06/14/2023 15:44 EDT [facility] Attestation . 06/14/2023 15:44 T [facility] at 1544 EDT Clinical History SEE BELOW 06/14/19 15:44 EDT [facility] HPV The result for the Human Papillomavirus (HPV) Detection-High Risk Types is Negative. No E6 or E7 mRNA is detected from HPV types 16,18,31,33,35,39 ,45,51,52,56,58,5 9,66, and 68 by yard person mediated amplification.Sheridan ting was performed on specimen [id number] and was resulted on 06/14/2023 1544 EDT by OTILIO, LAB INSTRUMENT RESULTS IN 06/14/2023 15:44 EDT [facility] Performing Lab [facility] 06/14/2023 15:44 EDT [facility] Scanned Images 06/14/2023 15:44 T [facility] Pap Test CERVIX UTERI STRUCTURE / Unknown 06/06/2023 16:55 EDT 06/11/2023 16:04 EDT Мария Schmidt PATHOLOGY ORDERABLES Final Resul t [facility] [address] [id number] documented in this encounter Visit Diagnoses Diagnosis Encounter for other general examination documented in this encounter
--- OUTSIDE RECORDS SUMMARY | 2025-03-04 06:26 | XMS_ITS | Encounter Summary ---
Author Organization [facility] Address [address] [place] [address] Care Team Providers Care Weigher Alloy Name Role Phone Unavailable Primary Care Provider Unavailabl e Encounter Details Date Type Department Care Team (Late st Contact Info) Description 08/13/2024 Lab Requisition [facility] Pathology & Laboratory Medicine - [facility] [address] [place] [address] Outr Resulting Lab, Provider Social History Tobacco [...] ANCA Interpretation Negative Negative 08/14/2024 12:12 EDT [facility] Comment: ANNAMARIE Positive, suggest [...] IFA result. Results were obtained with the SugarCRM[employer] NOVA Lite ANCA kit by indirect immunofluorescence. Blood VENOUS BLOOD / Unknown 08/13/2024 11:26 EDT 08/13/2024 21:23 EDT us Provider Outr Resulting Lab IMMUNOLOGY AND SEROL OGY ORDERABLES Final Result [facility] [address] [place] [address] documented in this encounter Visit Diagnoses Not on filedocumented in this encounter
--- OUTSIDE RECORDS SUMMARY | 2025-03-04 06:26 | XMS_ITS | Encounter Summary ---
Author Organization [facility] Address [address] [place] [address] Care Team Providers Care Bulk Receiver Name Role Phone Unavailable Primary Care Provider Unavailabl e Encounter Details Date Type Department Care Team (Late st Contact Info) Description 06/15/2024 Lab Requisition [facility] Pathology & Laboratory Medicine - [facility] [address] [place] [address] Outr Resulting Lab, Provider Social History Tobacco [...] IgE 6 <158 IU/mL 06/17/2024 8:21 EDT [facility] Blood VENOUS BLOOD / Unknown 06/15/2024 11:32 EDT 06/15/2024 22:21 EDT us Provider Outr Resulting Lab CHEMISTRY & BLOOD GA S ORDERABLES Final Result [facility] [address] [place], [place] [phone] documented in this encounter Visit Diagnoses Not on filedocumented in this encounter
== END 2025-03-04 06:24 | disposition home or self-care (01) ==
LOC: CF 06:23
PROVIDERS: Visit Provider Internal Medicine
DX: M54.2 Cervicalgia (principal); M89.8X1 Other specified disorders of bone, shoulder; G90.A Postural orthostatic tachycardia syndrome [POTS]
CPT/HCPCS: 64999; J2795

== ENCOUNTER 2025-03-04 10:43 | Outpatient (AMB) | payer MEDICARE, SELFPAY ==
[2025-03-04 11:27] VITALS: BP 110/68; BP 112/70; PULSE 62; PULSE 69; RESP 16; O2SAT 98; O2SAT 99
--- NOTE | 2025-03-04 11:27 | MHC.OFFVIS ---
Vital Signs 03/04/25 11:27 03/04/25 11:27 BP 112/70 110/68 Blood Pressure Location Lt brachial Rt brachial Position Sitting Sitting Respiration 16 16 Pulse 62 69 Pulse Source Pulse Oximeter Pulse Oximeter Pulse Oximetry (%) 98 99 Oxygen Delivery Method Room Air Room Air Intake Visit Reasons: Right Stellate Ganglion Block Self Propelled Mining Machine Operator Required: No Allergies No Known Allergies Allergy (Verified 03/04/25 11:28) Medication List - Last Reconciled 03/04/25 by Donna Cherry LPN gabapentin 100 mg PO TID immun glob G(IgG)-pro-IgA 0-50 10 gram/50 mL (20 %) (Hizentra) 14,000 mg subcut QWEEK propranolol 20 mg PO BID HPI HPI Right Stellate Ganglion Block: Details: Patient presents for scheduled procedure. Denies any recent cough, cold, infection, fever or other significant changes in medical history since last office visit. She reports 1 week of relief from the stellate ganglion block. Her pain is mostly localized to the area of the left lateral neck between the clavicle in the earlobe. She does not have significant right-sided pain. We will proceed with a left superficial cervical plexus block today to see if that provides comparable relief compared to the stellate ganglion block that she had on the left side. 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 Inguinal hernia Hyperpigmentation Herpes Fibroids, subserous Femoral hernia of left side Fatigue Exertional dyspnea CVID (common variable immunodeficiency) Circulation problem Atypical chest pain Hypertriglyceridemia Abdominal pain in female Physical Exam Vital Signs: Last Vital Signs Pulse 69 03/04/25 11:27 Resp 16 03/04/25 11:27 BP 110/68 03/04/25 11:27 Pulse Ox 99 03/04/25 11:27 Oxygen Delivery Method Room Air 03/04/25 11:27 Office Procedures Nerve Block Details: Superficial cervical plexus block, left, Ultrasound guided After obtaining written consent, pre-procedure blood pressure and heart rate were stable and recorded in the nursing record. The patient was placed sitting on the table. The area overlying the peripheral nerve was widely prepped with chloraprep, allowed to dry and sterilely draped. Using ultrasound, the appropriate landmarks were identified. A 25 gauge 1.5 in needle was advanced under ultrasound guidance using an in-plane technique to the superficial cervical plexus. Aspiration was negative for heme. 5 cc of ropivacaine 0.5% was injected. The needle was removed, skin cleansed and a sterile bandage was applied. The patient tolerated the procedure well and no complications were encountered. Following the procedure the patient's vital signs were stable. The patient was discharged home in good condition with post-procedural instructions. Time Out: Immediately prior to the procedure, the following was verbally confirmed that there is a signed consent form and that the correct patient, planned procedure, site and side are consistent with documentation and that necessary equipment and/or blood products are available prior to the start of the case. Complications: none EBL: <5 cc Additional procedure code (CPT) needed Assessment & Plan Assessment & Plan (1) Neck pain: Code(s): M54.2 - Cervicalgia Category: Medical (2) Clavicle pain: Code(s): M89.8X1 - Other specified disorders of bone, shoulder Category: Medical Plan Patient is status post left superficial cervical plexus block. Patient tolerated procedure well and was discharged home in stable condition with discharge instructions. All questions were answered. We will follow-up via telephone or in clinic to assess response to therapy. A follow-up appointment was made during today's visit. Orders: Orders US guide needle placement Today G90.A - Postural orthostatic tachycardia syndrome [POTS] Coding Level of Care Code Procedure Only Diagnoses Neck pain M54.2 Clavicle pain M89.8X1
== END 2025-03-04 11:42 | disposition home or self-care (01) ==
LOC: HO.PMCPRC 10:43
PROVIDERS: Visit Provider Internal Medicine
DX: M54.2 Cervicalgia (principal); M89.8X8 Other specified disorders of bone, other site
CPT/HCPCS: 64999; 76942